=== PATIENT | female | born 1985 | race African-American/Black ===

== ENCOUNTER → 2023-03-12 | Outpatient (CLI) | payer MEDICARE, OTHER | LOC: DX 09:14 | PROVIDERS: ATTEND Internal Medicine Infectious Disease | DX: B95.2 Enterococcus as the cause of diseases classified elsewhere (principal) | CPT/HCPCS: 36569; 71045 ==

== ENCOUNTER → 2023-04-30 | Outpatient (CLI) | payer MEDICARE, OTHER | LOC: DX 07:29 | PROVIDERS: ATTEND Internal Medicine Infectious Disease | DX: M46.28 Osteomyelitis of vertebra, sacral and sacrococcygeal region (principal) | CPT/HCPCS: 36569; 71045 ==